=== PATIENT | male | born 1990 | race American Indian/Alaskan Native ===

== ENCOUNTER 2019-05-11 05:38 | Emergency (ER) | payer OTHER ==
[2019-05-11 06:10] LABS: Basophils % (Auto) 0.5 % (0.0-1.8); Eosinophils # (Auto) 0.1 K/mm3 (0.0-0.4); Eosinophils % (Auto) 1.1 % (0.0-4.3); Hematocrit 38.2 % (35.5-45.6); Hemoglobin 12.2 gm/dl (11.8-15.2); Lymphocytes # (Auto) 2.4 K/mm3 (1.2-5.4); Lymphocytes % (Auto) 32.6 % (13.4-35.0); Mean Corpuscular HGB Conc 32 % (32-34); Mean Corpuscular Volume 73 fl (84-94); Monocytes # (Auto) 0.4 K/mm3 (0.0-0.8); Monocytes % (Auto) 5.3 % (0.0-7.3); Platelet Count 234 K/mm3 (140-440); Red Cell Distribution Width 14.3 % (13.2-15.2)
[2019-05-11 06:23] LABS: Calcium 9.3 mg/dL (8.4-10.2)
[2019-05-11 10:02] LABS: Bilirubin,Urine NEG (Negative); Blood,Urine NEG (Negative); Color,Urine Yellow (Yellow); Mucus,Urine FEW /HPF; Protein,Urine <15 mg/dL mg/dL (Negative); Urobilinogen,Urine < 2.0 mg/dL (<2.0)
[2019-05-11 10:13] LABS: Amphetamine Screen,Urine PRESUMPTIVE NEGATIVE; Benzodiazepines Screen,Urine PRESUMPTIVE NEGATIVE; Methadone Screen,Urine PRESUMPTIVE NEGATIVE; Opiate Screen,Urine PRESUMPTIVE NEGATIVE
--- NOTE | 2019-05-11 10:24 | Emergency Department Report ---
HPI - General Chief Complaint: Psych Time Seen by Provider: 05/11/19 09:20 - HPI HPI: 28-year-old -[place] male presents to the emergency department with what appears to be a mental health evaluation. The patient says that he chose to leave his current residence, where he pays rent, because the people who live with him or asking him to do things "that I do not want to do." His examples include doing drugs and killing people. He says that these people gave him an ultimatum and therefore he chose to leave and he walked here from [place]. He denies any suicidal or homicidal ideations or any hallucinations. He denies any alcohol use. He does admit to some recent marijuana use that may have been laced by something. He has a past medical history of rhabdomyosarcoma in remission. He denies any definitive psychiatric history but says that he may have been diagnosed with bipolar disorder sometime in the past. He is not currently on any medications. He admits to some insomnia. ED Past Medical Hx - Past Medical History Previous Medical History?: Yes Hx of Cancer: Yes (muscle in remission) - Surgical History Past Surgical History?: Yes Additional Surgical History: port placed and removed. abd - Social History Smoking Status: Current Every Day Smoker Substance Use Type: None ED Review of Systems ROS: Stated complaint: MH EVAL Other details as noted in HPI Comment: All other systems reviewed and negative Constitutional: denies: chills, fever Eyes: denies: eye pain, vision change ENT: denies: ear pain, throat pain Respiratory: denies: cough, shortness of breath Cardiovascular: denies: chest pain, palpitations Gastrointestinal: denies: abdominal pain, vomiting Genitourinary: denies: dysuria, discharge Musculoskeletal: denies: back pain, arthralgia Skin: denies: rash, lesions Neurological: denies: headache, weakness Psychiatric: denies: homicidal thoughts, suicidal thoughts Physical Exam - Physical Exam Vital Signs: Vital Signs 05/11/19 05/11/19 05:38 05:45 Temperature 97.3 F L 97.3 F L Pulse Rate 71 71 Respiratory 18 18 Rate Blood Pressure 135/105 Blood Pressure 135/105 [Right] O2 Sat by Pulse 99 99 Oximetry Physical Exam: GENERAL: The patient is well-developed well-nourished. HENT: Normocephalic. Atraumatic. Patient has moist mucous membranes. EYES: Extraocular motions are intact. NECK: Supple. Trachea is midline. CHEST/LUNGS: Clear to auscultation. There is no respiratory distress noted. HEART/CARDIOVASCULAR: Regular. There is no tachycardia. There is no murmur. ABDOMEN: Abdomen is soft, nontender. Patient has normal bowel sounds. There is no abdominal distention. SKIN: Skin is warm and dry. NEURO: The patient is awake, alert, and oriented. The patient is cooperative. The patient has no focal neurologic deficits. The patient has normal speech. MUSCULOSKELETAL: There is no tenderness or deformity. There is no limitation range of motion. There is no evidence of acute injury. ED Course Vital Signs 05/11/19 05/11/19 05:38 05:45 Temperature 97.3 F L 97.3 F L Pulse Rate 71 71 Respiratory 18 18 Rate Blood Pressure 135/105 Blood Pressure 135/105 [Right] O2 Sat by Pulse 99 99 Oximetry ED Medical Decision Making - Lab Data Result diagrams: 05/11/19 05:50 05/12/19 09:59 - Radiology Data Radiology results: report reviewed ULTRASOUND RENAL INDICATION: MOHSEN, renal failure. COMPARISON: No relevant prior imaging study available. FINDINGS: RIGHT KIDNEY: Size: 9.6 cm. Echogenicity: Mild increased echogenicity. Cortical thickness: Normal. Stones: None. Hydronephrosis: None. Cyst or mass: There is an 8 mm cyst in the upper pole. LEFT KIDNEY: Size: 8.2 cm. Echogenicity: Mild increased echogenicity. Cortical thickness: Normal. Stones: None. Hydronephrosis: None. Cyst or mass: None. Urinary Bladder: No significant abnormality. Free Fluid: None. Additional Findings: None. IMPRESSION 1. The kidneys are mildly echogenic characteristic of medical renal disease. There is no hydronephrosis.. - Medical Decision Making This patient presents to the emergency department for a mental health evaluation. The patient says that he has a bad living situation and that some of the other residents where he is renting a room and trying to convince him to do some drugs, harm other people and otherwise make bad choices. The patient currently says he denies any suicidal or homicidal ideations. The patient does occasionally appear disorganized. I wonder whether some of what he is saying is either delusions or gross exaggeration. However the patient does deny any suicidal or homicidal ideations, any hallucinations, and is currently awake/alert/oriented. He was seen by the psychiatric abstract checker who did not feel that he met criteria to be made a 1013 but has still referred him to be seen by the psychiatric team for further disposition. Patient's labs have been mostly unremarkable except for a urine drug screen positive for cocaine and marijuana, as well as some signs of renal insufficiency. The patient has never been here before and therefore I do not know whether this is acute or chronic. Urinalysis does not show any urinary tract infection or proteinuria. Ultrasound of the kidneys was done that shows some possible mild medical renal disease but otherwise no acute process. The patient is making a normal amount of urine and has no difficulty urinating. The patient was medically cleared for any type of psychiatric placement, if necessary. Otherwise there will be some discharge paperwork that will include nephrology referrals. A repeat metabolic panel was done on 05/12/19 that showed improvement of the renal insufficiency with a GFR going up to 54 after a liter of fluid and the patient eating and drinking. This may just be secondary to dehydration instead of chronic kidney disease. Nonetheless, the patient appears medically cleared for psychiatric placement. - Differential Diagnosis bipolar disorder, schizophrenia, substance abuse Critical Care Time: No Critical care attestation.: If time is entered above; I have spent that time in minutes in the direct care of this critically ill patient, excluding procedure time. ED Disposition Clinical Impression: Renal insufficiency, Medical clearance for psychiatric admission Disposition: [id number]/TX-[id number] PSY HOSP/PSY UNIT Is pt being admited?: No Condition: Stable Referrals: MIA ROMANO MD [Staff Physician] - 3-5 Days Time of Disposition: 10:42
[2019-05-11 10:29] LABS: Cannabinoid Screen,Urine PRESUMPTIVE POSITIVE; Cocaine Screen,Urine PRESUMPTIVE POSITIVE
[2019-05-11] MEDS ORDERED: NACL 0.9% 1000 ML 1,000 ML IV ONE (14:43)
--- NOTE | 2019-05-11 15:31 | Ultrasound Report ---
ULTRASOUND RENAL INDICATION: MOHSEN, renal failure. COMPARISON: No relevant prior imaging study available. FINDINGS: RIGHT KIDNEY: Size: 9.6 cm. Echogenicity: Mild increased echogenicity. Cortical thickness: Normal. Stones: None. Hydronephrosis: None. Cyst or mass: There is an 8 mm cyst in the upper pole. LEFT KIDNEY: Size: 8.2 cm. Echogenicity: Mild increased echogenicity. Cortical thickness: Normal. Stones: None. Hydronephrosis: None. Cyst or mass: None. Urinary Bladder: No significant abnormality. Free Fluid: None. Additional Findings: None. IMPRESSION 1. The kidneys are mildly echogenic characteristic of medical renal disease. There is no hydronephros is.. Signer Name: Braulio Sanders MD Signed: 05/11/2019 3:27 PM Workstation Name: [id number]
[2019-05-12 10:33] LABS: Calcium 8.6 mg/dL (8.4-10.2)
--- NOTE | 2019-05-12 11:16 | Consultation ---
History of Present Illness - Reason for Consult Consult date: 05/12/19 Reason for consult: Mental Health Evaluation Requesting physician: SILVIA STEWARD - Chief Complaint Chief complaint: "I need information for drug rehab" - History of Present Psychiatric Illness 28-year-old -[place] male presents to the ER for a mental health evaluation. Today the patient was calm and cooperative during the assessment. He stated that he used drugs the past 2 days and decided to leave his place of residence. He stated that he do not get along with some of the residents. He stated that his "Major issue" is his drug use and would like information on rehab services. He was asked about his mental health, he stated, 'I'm okay, no problems with me." He denies a psychotic/mood do when asked. He denies Si/HI's and AVH's. He denies erratic sleep and a poor appetite. He denies alcohol consumption (etoh). He state that he's homeless. Medications and Allergies Allergies Allergy/AdvReac Type Severity Reaction Status Date / Time No Known Allergies Allergy Verified 05/11/19 05:44 Past psychiatric history - Past Medical History Past Medical History: other (Rhabdomyosarcoma remission) Past Surgical History: No surgical history - past Psychiatric treatment and history psychiatric treatment history: Hx of substance abuse. Denies a fam psy hx. - Social History Social history: other (Homeless) Mental Status Exam - Vital signs Last Vital Signs Temp 98.6 F 05/11/19 19:43 Pulse 78 05/11/19 19:43 Resp 18 05/11/19 19:43 BP 128/88 05/11/19 19:43 Pulse Ox 99 05/11/19 19:43 - Exam Narrative exam: MSE: Appearance: calm, cooperative Behavior: regular eye contact Speech: regular rate and tone Mood: "okay" Affect: congruent to mood Thought Process: circumstantial Thought Content: denies SI/HI's and AVH's Motor Activity: ambulatory Cognition: A/O x3 Insight: fair Judgment: fair Results Result Diagrams: 05/11/19 05:50 05/12/19 09:59 Abnormal lab results 05/11/19 05/12/19 Range/Units 05:50 09:59 BUN 22 H (9-20) mg/dL Creatinine 1.8 H (0.8-1.5) mg/dL Glucose 156 H (75-100) mg/dL Total Creatine Kinase 228 H (55-170) units/L All other labs normal. Assessment and Plan Assessment and plan: Impression: Substance Use DO. (cocaine). Cannabis Use DO. Today the patient was calm and cooperative during the assessment. Recommendation/Plan: Discussed with the importance to abstain from recreational drug use, he verbalized understanding. Case mgmt involvement, the patient may need assistance with placement. Dispo: The patient can follow up with [facility] for outpatient rehab services. Will staff with Dr. Deni Manjarrez.
[2019-05-12 12:21] VITALS: BP 123/83
== END 2019-05-12 12:20 | disposition home or self-care (01) ==
LOC: ED 05:38 → EEVIPCON 05:38 → ED 05-12 12:20
DX: F31.9 Bipolar disorder, unspecified (principal); C79.81 Secondary malignant neoplasm of breast; N18.9 Chronic kidney disease, unspecified; F17.200 Nicotine dependence, unspecified, uncomplicated; E86.0 Dehydration
CPT/HCPCS: 36415; 76770; 80048; 80307; 81001; 82550; 85025; 96360; 99284; G0480; J7030; 80320